=== PATIENT | female | born 1965 | race Two or more races ===

== ENCOUNTER 2017-01-10 06:29 | Emergency (ER) | payer MEDICAID, OTHER ==
[~2017-01-10] VITALS: Ht 167.6 cm; Wt 77.1 kg
[2017-01-10 07:38] LABS: INR 1.01 (0.9-1.15); Partial Thromboplastin Time 24.5 sec (22.64-33.71); Prothrombin Time 10.9 sec (9.37-12.3)
[2017-01-10 07:48] LABS: Albumin 3.1 g/dL (3.4-5.0); Alkaline Phosphatase 109 U/L (45-117); Anion Gap 8 (5-15); Aspartate Aminotransferase 14 U/L (15-37); BUN/Creatinine Ratio 14.1; Bilirubin, Total 0.4 mg/dL (0.2-1.0); Blood Urea Nitrogen 10 mg/dL (7-18); Calcium 8.9 mg/dL (8.5-10.1); Carbon Dioxide 29 mmol/L (21-32); Chloride 108 mmol/L (98-107); GFR African American 111 mL/min; GFR Non-African American 92 mL/min; Glucose 132 mg/dL (74-106); Potassium 4.3 mmol/L (3.5-5.1); Sodium 145 mmol/L (136-145); Total Protein 7.3 g/dL (6.4-8.2)
[2017-01-10] MEDS ORDERED: LORazepam 2MG/ML-1ML VIAL IV ONE (08:15)
[2017-01-10] MEDS ORDERED: ONDANSETRON HCL 4 MG/2 ML VIAL IV ONE (08:15)
[2017-01-10 10:22] LABS: Basophils # (auto) 0 uL; Basophils % (auto) 0.4 % (0.0-2.0); Eosinophils # (auto) 0.1 uL; Eosinophils % (auto) 1.2 % (0.0-7.0); Hematocrit 37.6 % (36.0-46.0); Hemoglobin 12.5 g/dL (12.2-16.2); Lymphocytes # (auto) 1.3 uL; Lymphocytes % (auto) 29.9 % (10.0-50.0); Mean Corpuscular Hemoglobin 30.9 pg (28.0-32.0); Mean Corpuscular Hgb Conc. 33.2 g/dL (32.0-36.0); Mean Corpuscular Volume 93.1 fL (80.0-100.0); Mean Platelet Volume 8.5 fL (7.4-10.4); Monocytes # (auto) 0.4 uL; Monocytes % (auto) 8.4 % (0.0-12.0); Neutrophils # (auto) 2.7 uL; Neutrophils % (auto) 60.1 % (37.0-80.0); Platelet Count (auto) 324 10^3/uL (140-450); White Blood Cell 4.4 10^3/uL (4.4-10.8)
[2017-01-10 13:08] VITALS: BP 125/77
[2017-01-10 13:35] LABS: Urine Bilirubin Negative (Negative); Urine Blood Negative /uL (Negative); Urine Color Yellow (Yellow); Urine Glucose Normal (Normal); Urine Ketone Negative (Negative); Urine Nitrite Negative (Negative); Urine RBC <1 /hpf (0 - 4); Urine Squamous Epithelial Cell FEW /hpf (<5); Urine Urobilinogen Normal (Negative); Urine pH 7.5 (5.0-8.0)
[2017-01-11 06:06] LABS: Thyroxine (T4) 9.2 ug/dL (4.5-12.0)
== END 2017-01-10 15:43 | disposition home or self-care (01) ==
LOC: ER 06:29 → EDSEX 06:29 → ER 15:43
DX: R42 Dizziness and giddiness (principal); R11.2 Nausea with vomiting, unspecified; E07.9 Disorder of thyroid, unspecified; Z88.0 Allergy status to penicillin
CPT/HCPCS: 36415; 80053; 81001; 81025; 84443; 84484; 84702; 85025; 85610; 85730; 93005; 94761; 96374; 96375; 99285; J2060; J2405

== ENCOUNTER 2017-02-28 18:36 | Emergency (ER) | payer MEDICAID ==
[~2017-02-28] VITALS: Ht 167.6 cm; Wt 74.4 kg
[2017-02-28 19:58] LABS: Albumin 3.8 g/dL (3.4-5.0); Calcium 8.5 mg/dL (8.5-10.1); Potassium 3.7 mmol/L (3.5-5.1)
[2017-02-28 20:01] LABS: Basophils # (auto) 0 uL; Basophils % (auto) 0.4 % (0.0-2.0); Eosinophils # (auto) 0 uL; Eosinophils % (auto) 0.9 % (0.0-7.0); Hematocrit 38.9 % (36.0-46.0); Hemoglobin 13.2 g/dL (12.2-16.2); Lymphocytes # (auto) 1.4 uL; Lymphocytes % (auto) 35.9 % (10.0-50.0); Mean Corpuscular Hemoglobin 31.8 pg (28.0-32.0); Mean Corpuscular Hgb Conc. 33.8 g/dL (32.0-36.0); Mean Platelet Volume 9.1 fL (7.4-10.4); Monocytes # (auto) 0.2 uL; Monocytes % (auto) 6.2 % (0.0-12.0); Neutrophils # (auto) 2.2 uL; Neutrophils % (auto) 56.6 % (37.0-80.0); Platelet Count (auto) 236 10^3/uL (140-450); Red Cell Distribution Width 14.9 % (11.6-16.0)
[2017-02-28 20:13] LABS: BUN/Creatinine Ratio 13.8; Bilirubin, Total 0.5 mg/dL (0.2-1.0); Total Protein 7.8 g/dL (6.4-8.2)
[2017-02-28] MEDS ORDERED: SODIUM CHLORIDE 0.9% 1,000 ML IV ONE (20:33)
[2017-02-28] MEDS ORDERED: LORazepam 2MG/ML-1ML VIAL IV ONE (20:45)
[2017-02-28 21:30] VITALS: BP 124/74
== END 2017-02-28 22:03 | disposition home or self-care (01) ==
LOC: ER 18:52
DX: R42 Dizziness and giddiness (principal); E07.9 Disorder of thyroid, unspecified; Z90.710 Acquired absence of both cervix and uterus; Z88.0 Allergy status to penicillin
CPT/HCPCS: 36415; 80053; 85025; 93005; 94761; 96361; 96374; 99285; J2060; J7030

== ENCOUNTER 2017-07-23 06:29 | Emergency (ER) | payer MEDICAID ==
[~2017-07-23] VITALS: Ht 154.9 cm; Wt 68.0 kg
[2017-07-23 06:30] VITALS: BP 107/64
== END 2017-07-23 07:11 | disposition home or self-care (01) ==
LOC: ER 06:30
DX: J02.9 Acute pharyngitis, unspecified (principal); E07.89 Other specified disorders of thyroid; Z90.710 Acquired absence of both cervix and uterus; Z88.0 Allergy status to penicillin